=== PATIENT | male | born 1945 | race Caucasian/White ===

== ENCOUNTER 2016-09-14 22:27 | Observation (INO) | payer OTHER, MEDICARE ==
--- NOTE | 2016-09-14 23:02 | EDPHY ---
H & P Stated Complaint: fatigued, memory loss Source: Patient, Family - Personal History Current Tetanus/Diphtheria Vaccine: Unsure - Medical/Surgical History Hx Asthma: Yes Hx Chronic Respiratory Disease: Yes Hx Diabetes: Yes Hx Cardiac Disease: Yes Hx Renal Disease: Yes Hx Cirrhosis: Yes Hx Alcoholism: Yes Hx HIV/AIDS: Yes Hx Splenectomy or Spleen Trauma: Yes Other PMH: PMHx: hypothyroid. PSHx: hernia Time Seen by Provider: 09/14/16 22:44 HPI/ROS: CHIEF COMPLAINT: AMS HISTORY OF PRESENT ILLNESS: This is a 71-year-old presenting to the emergency department reporting he feels like maybe he has had a mini-stroke last night. Patient stated he was feeling fatigue yesterday with a headache went to bed about 1600 slit most of the night, stated she had to wake him up around 8 o 'clock this morning which is out of character for him. Patient's stated he had altered mental status this morning seemed confused. Patient states he feels like he has lost a few years of memory, he remembers going to bed last night but the last thing he can remember was his daughter having a child last . REVIEW OF SYSTEMS: Constitutional: No fever, no chills. Eyes: No discharge. ENT: No sore throat. Cardiovascular: No chest pain, no palpitations. Respiratory: No cough, no shortness of breath. Gastrointestinal: No abdominal pain, no vomiting. Genitourinary: No difficulty urinating Musculoskeletal: No back pain. Skin: No rashes. Neurological: headache, ams (Nabila Stahl) - Physical Exam Exam: General Appearance: Alert, no distress. Eyes: PERRLA. no pallor or injection. ENT, Mouth: Mucous membranes moist. Respiratory: There are no retractions, lungs are clear to auscultation. Cardiovascular: Regular rate and rhythm. Gastrointestinal: Abdomen is soft and nontender, no masses, bowel sounds normal. Neurological: Ambulatory without gait disturbance. No focal deficits, no facial drooping no slurred speech Skin: Warm and dry, no rashes. Musculoskeletal: Neck is supple nontender. Extremities: symmetrical, full range of motion. Psychiatric: Patient is oriented X 3, there is no agitation. Flat affect (Nabila Stahl) Constitutional: Initial Vital Signs Temperature (C) 36.6 C 09/14/16 22:30 Heart Rate 75 09/14/16 22:30 Respiratory Rate 16 09/14/16 22:30 Blood Pressure 142/94 H 09/14/16 22:30 O2 Sat (%) 93 09/14/16 22:30 O2 Delivery Mode Room Air Allergies/Adverse Reactions: No Known Allergies Allergy (Unverified 09/14/16 22:30) Home Medications: Medication Instructions Recorded Levothyroxine [Synthroid 100 mcg 100 mcg PO DAILY06 09/14/16 (*)] Acetaminophen [Tylenol 325mg (*)] 650 mg PO Q4HRS PRN #0 tab 09/15/16 Herbals/Supplements -Info Only 1 ea PO DAILY 09/15/16 Medical Decision Making ED Course/Re-evaluation: Discussed the plan of care: CBC, CMP, troponin, EKG, CT head 2340: Discussed patient's with Dr. Wetzel patient me at admitted for stroke evaluation 2355: Admit to Dr. Overton. Discussed plan with patient and , agreed with plan. Not apparent distress, no neuro changes (Nabila Stahl) Differential Diagnosis: Other differential diagnosis considered not limited to subarachnoid hemorrhage, CVA, and sepsis (Nabila Stahl) - Data Points Laboratory Results: Laboratory Results 09/14/16 22:49 09/14/16 22:49 Medications Given: Discontinued Medications Acetaminophen (Tylenol) 650 mg PO Q4HRS PRN PRN Reason: Pain, Mild/Fever, Can Take PO Stop: 03/14/17 00:26 Last Admin: 09/15/16 07:30 Dose: 650 mg Aspirin Buffered (Aspirin Ec) 81 mg PO DAILY KEEGAN Stop: 03/14/17 08:59 Last Admin: 09/15/16 09:46 Dose: 81 mg Enoxaparin Sodium (Lovenox) 40 mg SC DAILY KEEGAN Stop: 03/14/17 08:59 Last Admin: 09/15/16 09:46 Dose: 40 mg Sodium Chloride (Ns) 1,000 mls @ 0 mls/hr IV ONCE ONE PRN Reason: Wide Open Stop: 09/14/16 23:17 Last Admin: 09/14/16 23:25 Dose: 1,000 mls Sodium Chloride (Ns) 1,000 mls @ 75 mls/hr IV CONT KEEGAN Stop: 03/14/17 00:29 Last Admin: 09/15/16 07:13 Dose: 1,000 mls Departure - Departure Disposition: [facility] Clinical Impression: Altered mental status, unspecified Qualifiers: Altered mental status type: unspecified Qualified Code(s): R41.82 - Altered mental status, unspecified Condition: Good
[2016-09-14 23:09] LABS: % IMMATURE GRANULYOCYTES 0.3 % (0.0-1.1); ABSOLUTE IMMATURE GRANULOCYTES 0.05 10^3/uL (0.00-0.10); ADD DIFF? NO; ADD MORPH? NO; ADD SCAN? NO; ATYPICAL LYMPHOCYTE FLAG 0 (0-99); FRAGMENT RBC FLAG 0 (0-99); HEMATOCRIT 51.3 % (40.0-51.0); HEMOGLOBIN 17.6 g/dL (13.7-17.5); LEFT SHIFT FLG 0 (0-99); LIPEMIA HEMOLYSIS FLAG 90 (0-99); MEAN CELL HEMOGLOBIN 30.4 pg (27.9-34.1); MEAN CELL HEMOGLOBIN CONCENTR. 34.3 g/dL (32.4-36.7); MEAN CELL VOLUME 88.8 fL (81.5-99.8); MEAN PLATELET VOLUME 10.7 fL (8.7-11.7); PLATELET CLUMPS FLAG 20 (0-99); PLATELET COUNT 209 10^3/uL (150-400); RED BLOOD CELL COUNT 5.78 10^6/uL (4.40-6.38); RED CELL DISTRIBUTION WIDTH 14.4 % (11.5-15.2)
[2016-09-14] MEDS ORDERED: NS 1,000 ML IV ONE (23:16)
--- NOTE | 2016-09-14 23:16 | CPEKG ---
Heart Rate: 69 RR Interval: 870 P-R Interval: 164 QRSD Interval: 106 QT Interval: 404 QTC Interval: 433 P [place]: 68 QRS [place]: 110 T Wave [place]ton: 43 EKG Severity - ABNORMAL ECG - EKG Impression: SINUS RHYTHM EKG Impression: VENTRICULAR PREMATURE COMPLEX EKG Impression: PROBABLE RIGHT VENTRICULAR HYPERTROPHY Electronically Signed By: Benjamin Wetzel 15-Sep-2016 06:53:33
[2016-09-14 23:17] LABS: ANION GAP 10 mEq/L (8-16); CARBON DIOXIDE 22 mEq/l (22-31); CHLORIDE 105 mEq/L (97-110); CREATININE 1.1 mg/dL (0.7-1.3); GLOMERULAR FILTRATION RATE > 60; GLUCOSE 108 mg/dL (70-100); POTASSIUM 3.9 mEq/L (3.5-5.2); SODIUM 137 mEq/L (134-144)
[2016-09-14 23:28] LABS: TROPONIN I < 0.012 ng/mL (0-0.034)
[2016-09-15 00:04] LABS: COLOR YELLOW; LEUKOCYTE ESTERASE,URINE NEGATIVE (NEGATIVE); NITRITE,URINE NEGATIVE (NEGATIVE)
[2016-09-15] MEDS ORDERED: ACETAMINOPHEN 325 MG TAB PO PRN (00:27)
[2016-09-15] MEDS ORDERED: ONDANSETRON 4 MG/2 ML VIAL IVP PRN (00:27)
[2016-09-15] MEDS ORDERED: ONDANSETRON DISINTEGRATING 4 MG TAB PO PRN (00:27)
[2016-09-15] MEDS ORDERED: HYDROCODONE/APAP 5/325 TAB PO PRN (00:27)
[2016-09-15] MEDS ORDERED: NS 1,000 ML IV SCH (00:30)
--- NOTE | 2016-09-15 00:38 | PDGENHP ---
History and Physical - Chief Complaint memory loss - History of Present Illness Patient is 71 year old male with hypothyroidism who presents to the ED with his complaining of retrograde memory loss. Patient states he began feeling generally lethargic on 09/13 afternoon, went to sleep in the early evening. He slept throughout the night until his woke him up at 8 am, which is very unusual for him. He continued to feel a general lethargy and also began to experience a mild frontal headache (without photophobia, phonophobia, visual changes), some nasal congestion, sneezing and decreased appetite. He denies any obvious fever, chills, cough, chest pain, nausea, vomiting, diarrhea or urinary complaints. In addition to these symptoms, his also noted that he appeared more confused since waking this morning and also was having difficulty remembering recent events. By this evening, it became clear that the patient could not recall major events in his life from the past two years. 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 He is aware of the past 24 hours, but cannot recall major events in his recent past. He/his deny any recent travel or sick contacts. He also has not had any major falls or head trauma recently. He does regularly smoke marijuana and this has not changed in frequency or quantity recently. Denies any other drug use, denies any recent changes to his Synthroid dose. On arrival to the ED, patient was afebrile and hemodynamically stable. Labs revealed a leukocytosis, but normal BMP, negative troponin and normal UA. CT head was unremarkable for any acute changes. EKG was also negative for any ischemic changes. He was given 1L NS hydration and admitted to the hospitalist service for further management. History Information - Allergies/Home Medication List Allergies/Adverse Reactions: No Known Allergies Allergy (Unverified 09/14/16 22:30) Home Medications: Levothyroxine 09/14/16 [Last Taken Unknown] I have personally reviewed and updated: family history, medical history, social history, surgical history - Past Medical History Additional medical history: hypothyroidism - Surgical History Additional surgical history: hernia repair - Family History Additional family history: Father: CVA - Social History Smoking Status: Former smoker (quit > 30 years ago, smoker x 10 years) Alcohol Use: Rarely Drug Use: Marijuana (daily) Additional social history: 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 Review of Systems ROS: 10pt was reviewed & negative except for what was stated in HPI & below Physical Exam Temp Pulse Resp BP Pulse Ox 36.6 C 75 16 142/94 H 93 09/14/16 22:30 09/14/16 22:30 09/14/16 22:30 09/14/16 22:30 09/14/16 22:30 Constitutional: no apparent distress, appears nourished, not in pain Eyes: PERRL, anicteric sclera, EOMI Ears, Nose, Mouth, Throat: moist mucous membranes, hearing normal, ears appear normal, no oral mucosal ulcers Cardiovascular: regular rate and rhythym, no murmur, rub, or gallop, No JVD, No edema Peripheral Pulses: 2+: dorsalis-pedis (R), dorsalis-pedis (L) Respiratory: no respiratory distress, no rales or rhonchi, clear to auscultation Gastrointestinal: normoactive bowel sounds, soft, non-tender abdomen, no palpable masses Genitourinary: no bladder fullness, no bladder tenderness Skin: warm, normal color, no rashes or abrasions, no fluctuance, no induration, No mottled Musculoskeletal: full muscle strength, no muscle tenderness, normal joint ROM, no joint effusions Neurologic: AAOx3, sensation intact bilaterally, CN II-XII Intact, other ( finger to nose intact; strength 5/5 in all extremities; cannot recall last 2 years of his life), No weakness, No numbness, No pronator drift, No asterixes, No facial droop Psychiatric: interacting appropriately, not anxious, not encephalopathic, thought process linear Lab Data & Imaging Review 09/14/16 22:49 09/14/16 22:49 WBC 14.34 10^3/uL (3.80-9.50) H 09/14/16 22:49 RBC 5.78 10^6/uL (4.40-6.38) 09/14/16 22:49 Hgb 17.6 g/dL (13.7-17.5) H 09/14/16 22:49 Hct 51.3 % (40.0-51.0) H 09/14/16 22:49 MCV 88.8 fL (81.5-99.8) 09/14/16 22:49 MCH 30.4 pg (27.9-34.1) 09/14/16 22:49 MCHC 34.3 g/dL (32.4-36.7) 09/14/16 22:49 RDW 14.4 % (11.5-15.2) 09/14/16 22:49 Plt Count 209 10^3/uL (150-400) 09/14/16 22:49 MPV 10.7 fL (8.7-11.7) 09/14/16 22:49 Neut % (Auto) 66.9 % (39.3-74.2) 09/14/16 22:49 Lymph % (Auto) 22.5 % (15.0-45.0) 09/14/16 22:49 [place] % (Auto) 8.9 % (4.5-13.0) 09/14/16 22:49 Eos % (Auto) 0.8 % (0.6-7.6) 09/14/16 22:49 Baso % (Auto) 0.6 % (0.3-1.7) 09/14/16 22:49 Nucleat RBC Rel Count 0.0 % (0.0-0.2) 09/14/16 22:49 Absolute Neuts (auto) 9.59 10^3/uL (1.70-6.50) H 09/14/16 22:49 Absolute Lymphs (auto) 3.22 10^3/uL (1.00-3.00) H 09/14/16 22:49 Absolute Monos (auto) 1.28 10^3/uL (0.30-0.80) H 09/14/16 22:49 Absolute Eos (auto) 0.12 10^3/uL (0.03-0.40) 09/14/16 22:49 Absolute Basos (auto) 0.08 10^3/uL (0.02-0.10) 09/14/16 22:49 Absolute Nucleated RBC 0.00 10^3/uL (0-0.01) 09/14/16 22:49 Immature Gran % 0.3 % (0.0-1.1) 09/14/16 22:49 Immature Gran # 0.05 10^3/uL (0.00-0.10) 09/14/16 22:49 Sodium 137 mEq/L (134-144) 09/14/16 22:49 Potassium 3.9 mEq/L (3.5-5.2) 09/14/16 22:49 Chloride 105 mEq/L (97-110) 09/14/16 22:49 Carbon Dioxide 22 mEq/l (22-31) 09/14/16 22:49 Anion Gap 10 mEq/L (8-16) 09/14/16 22:49 BUN 20 mg/dL (7-23) 09/14/16 22:49 Creatinine 1.1 mg/dL (0.7-1.3) 09/14/16 22:49 Estimated GFR > 60 09/14/16 22:49 Glucose 108 mg/dL (70-100) H 09/14/16 22:49 Calcium 10.0 mg/dL (8.5-10.4) 09/14/16 22:49 Troponin I < 0.012 ng/mL (0-0.034) 09/14/16 22:49 Urine Color YELLOW 09/14/16 23:53 Urine Appearance CLEAR 09/14/16 23:53 Urine pH 6.0 (5.0-7.5) 09/14/16 23:53 Ur Specific [place] 1.017 (1.002-1.030) 09/14/16 23:53 Urine Protein NEGATIVE (NEGATIVE) 09/14/16 23:53 Urine Ketones NEGATIVE (NEGATIVE) 09/14/16 23:53 Urine Blood NEGATIVE (NEGATIVE) 09/14/16 23:53 Urine Nitrate NEGATIVE (NEGATIVE) 09/14/16 23:53 Urine Bilirubin NEGATIVE (NEGATIVE) 09/14/16 23:53 Urine Urobilinogen NEGATIVE EU (0.2-1.0) 09/14/16 23:53 Ur Leukocyte Esterase NEGATIVE (NEGATIVE) 09/14/16 23:53 Urine Glucose NEGATIVE (NEGATIVE) 09/14/16 23:53 Visualized and Interpreted imaging results: Yes Interpretation: CT head: no acute intracranial hemorrhage, edema, infarct noted Visualized and Interpreted EKG results: Yes EKG Interpretation: Positive for: normal sinsus rhythm (no obvious st/t wave changes) Assessment & Plan Assessment: Patient is a 71 year old male with well controlled hypothyroidism who presents to the ED with 1 day of generalized fatigue, upper respiratory symptoms and retrograde amnesia. Plan: # retrograde amnesia According to patient's , this has been present since this AM, not with any other focal neurologic deficits. CT head is negative for acute changes. Suspect a metabolic etiology given coinciding URI type symptoms vs related to an acute neurologic event vs related to marijuana use. Patient presents outside of tpa window and NIH stroke scale is 0. - check lipid panel, tsh, TTE and troponins - neurology consult - carotid US, consider MRI brain - rule out infection - check drug screen # leukocytosis Patient describes 1 day of sneezing, nasal congestion and mild frontal headache , appears consistent with an early URI. He has leukocytosis on presentation, but does not meet SIRS/sepsis criteria. UA negative. Will check flu swab and cxr and continue to trend. # hypothyroidism Check TSH and continue home synthroid # dispo: admit to observation # gen: Regular diet DVT ppx: low risk Full code
[2016-09-15 05:02] LABS: % IMMATURE GRANULYOCYTES 0.3 % (0.0-1.1); ABSOLUTE IMMATURE GRANULOCYTES 0.03 10^3/uL (0.00-0.10); ADD DIFF? NO; ADD MORPH? NO; ADD SCAN? NO; ATYPICAL LYMPHOCYTE FLAG 0 (0-99); FRAGMENT RBC FLAG 0 (0-99); HEMOGLOBIN 16.9 g/dL (13.7-17.5); LEFT SHIFT FLG 0 (0-99); LIPEMIA HEMOLYSIS FLAG 90 (0-99); MEAN CELL HEMOGLOBIN 30.7 pg (27.9-34.1); MEAN CELL HEMOGLOBIN CONCENTR. 34.5 g/dL (32.4-36.7); MEAN CELL VOLUME 88.9 fL (81.5-99.8); MEAN PLATELET VOLUME 10.7 fL (8.7-11.7); PLATELET CLUMPS FLAG 0 (0-99); PLATELET COUNT 171 10^3/uL (150-400); RED BLOOD CELL COUNT 5.51 10^6/uL (4.40-6.38); RED CELL DISTRIBUTION WIDTH 14.2 % (11.5-15.2)
--- NOTE | 2016-09-15 05:08 | CPEKG ---
Heart Rate: 74 RR Interval: 811 P-R Interval: 164 QRSD Interval: 96 QT Interval: 388 QTC Interval: 431 P [place]: 81 QRS [place]: 105 T Wave [place]: 37 EKG Severity - OTHERWISE NORMAL ECG - EKG Impression: SINUS RHYTHM EKG Impression: RIGHT AXIS DEVIATION Electronically Signed By: Benjamin Wetzel 15-Sep-2016 06:53:33
[2016-09-15 05:13] LABS: ANION GAP 8 mEq/L (8-16); CALCIUM 9.1 mg/dL (8.5-10.4); CARBON DIOXIDE 22 mEq/l (22-31); CHLORIDE 109 mEq/L (97-110); CHOLESTEROL 152 mg/dL (140-220); CHOLESTEROL/HDL RATIO 5.24 RATIO (1.00-4.97); GLOMERULAR FILTRATION RATE > 60; GLUCOSE 99 mg/dL (70-100); HIGH DENSITY LIPOPROTEIN 29 mg/dL (40-65); LDL/HDL RATIO 3.38 RATIO (1.00-3.64); LOW DENSITY LIPOPROTEIN 98 mg/dL (80-100); NON-HIGH DENSITY LIPOPROTEIN 123 mg/dL (90-129); POTASSIUM 4.1 mEq/L (3.5-5.2); SODIUM 139 mEq/L (134-144); TRIGLYCERIDE 128 mg/dL (40-150); VERY LOW DENSITY LIPOPROTEINS 25 mg/dL (8-25)
[2016-09-15 05:19] LABS: INR 1.01 (0.83-1.16); PROTIME(PATIENT) 13.2 SEC (12.0-15.0)
[2016-09-15 05:20] LABS: APTT 28.5 SEC (23.0-38.0)
[2016-09-15 05:24] LABS: TROPONIN I 0.013 ng/mL (0-0.034)
[2016-09-15 06:41] LABS: CK-MB INTERPRETATION NEGATIVE (NEGATIVE)
[2016-09-15 06:48] LABS: CREATINE KINASE-MB FRACTION 3.41 ng/mL (0-3.19)
[2016-09-15 07:54] VITALS: PULSE 74; RESP 16
[2016-09-15] MEDS ORDERED: ENOXAPARIN 40 MG/0.4 ML SYR SC SCH (09:00)
[2016-09-15] MEDS ORDERED: ASPIRIN EC 81 MG TAB PO SCH (09:00)
[2016-09-15 11:54] VITALS: BP 132/82; TEMP 97.9; O2SAT 94
--- NOTE | 2016-09-15 12:42 | HOSPPROG ---
Hospitalist Progress Note Assessment/Plan: Patient is a 71 year old male with hypothyroidism who presents to the ED with 1 day of generalized fatigue, upper respiratory symptoms and retrograde amnesia. # Global transient amnesia CT of head negative MRI shows ? right inferior frontal hemorrhage (likely artifact) patient to f/u w Dr London echo pending carotid Doppler shows no flow limiting stenosis #cannibas use recommending not using this until amnesia resolves # leukocytosis negative for flu afebrile, on room air ua negative per had a fever this past , but none further # hypothyroidism TSH is stable Synthroid # dispo: dc home Subjective: Vineet has no complaints. Objective: Vital Signs Temp Pulse Resp BP Pulse Ox 36.6 C 74 16 132/82 H 94 09/15/16 11:52 09/15/16 11:52 09/15/16 11:52 09/15/16 11:52 09/15/16 11:52 Laboratory Results 09/15/16 04:33 09/15/16 04:33 09/14/16 09/15/16 09/16/16 05:59 05:59 05:59 Intake Total 1400 Output Total 800 Balance 600 PT 13.2 SEC (12.0-15.0) 09/15/16 04:33 INR 1.01 (0.83-1.16) 09/15/16 04:33 - Physical Exam Constitutional: no apparent distress, appears nourished, not in pain Eyes: PERRL Ears, Nose, Mouth, Throat: hearing normal Cardiovascular: regular rate and rhythym Respiratory: no respiratory distress Gastrointestinal: normoactive bowel sounds Skin: warm Musculoskeletal: full muscle strength, no muscle tenderness Neurologic: AAOx3, CN II-XII Intact, No numbness, No pronator drift, No facial droop Psychiatric: interacting appropriately, not anxious, poor memory ICD10 Worksheet Patient Problems: Problems Problem Status Onset Altered mental status, unspecified Acute
--- NOTE | 2016-09-15 14:59 | GCON ---
[f rep st] CONSULTATION NEUROLOGY CONSULTATION REFERRING PHYSICIAN: Quita Overton MD CHIEF COMPLAINT: Amnesia. TOTAL TIME: seventy total minutes floor time today; 50% in direct counseling with the patient and his regarding differential diagnosis and plan of care for the patient's amnesia along with reviewing hospital studies. 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 The only prescription medicine he takes is thyroid replacement. He has no significant past medical history outside of this and does smoke marijuana twice daily for many years. He obtains his marijuana from standard dispensaries. There has been no change in his quantity or pattern of smoking marijuana. His states that his memory "is great" at baseline but he has never had any profound amnestic spells. There has been no recent head trauma that he knows of , accidents, etc. Yesterday morning he woke up with a slight headache and realized that he could not remember the last 2-5 years of life events, including the of a grandchild who he spent 1 month with in February, and other similar types of important information he should remember. Because of this, he was brought to the emergency department. In addition, he did have a fever they think on Saturday or but could not get out to the drug store to buy a thermometer due to the snow. Therefore there it was a subjective fever but in any case, he did feel a little bit feverish and had a headache at that time as well on Saturday or . The amnesia started yesterday morning on Saturday. No focal neurologic symptoms. Carotid Doppler done while in the hospital shows no flow-limiting stenosis. Echocardiogram is pending. Head CT and brain MRI are essentially unremarkable. He has no acute infarct or mass lesions. The MRI does suggest raise a possible tiny right inferior frontal hemorrhage but also raises the point this could be partial volume averaging from the orbital ridge. It was compared to the head CT which again, does not clarify the imaging finding. It could be certainly an artifact. REVIEW OF SYSTEMS: A 10-point review of systems was done and only pertinent to the HPI. PAST MEDICAL HISTORY: Hypothyroidism. ALLERGIES: No known drug allergies. HOME MEDICATIONS: Levothyroxine. FAMILY HISTORY: Father had a stroke. PHYSICAL EXAMINATION: VITAL SIGNS: Temperature 36.6, pulse 75, respirations 16 , blood pressure 119/69. GENERAL: No acute distress. He is very pleasant. HIGHER MENTAL FUNCTION: He is awake and alert. He had no aphasia. On the Sourav Cognitive Assessment he scored 22/30 earlier this morning with 0/5 word recall after delay. CRANIAL NERVE EXAM: Normal 2 through 7 and 12. MOTOR : He has normal strength and tone throughout. No focal weakness. SENSORY: Normal light touch in all 4 extremities. Coordination and gait were normal. The patient was quite agile. IMPRESSION/PLAN: 1. Amnesia. The patient's amnestic spell is not entirely clear. This could be an atypical presentation of transient global amnesia (TGA) with more profound retrieval abnormalities. Other contributors include his twice daily cannabis consumption which could exacerbate any other independent causes of amnesia (such as TGA). Discussed at length. Focal seizure is a possibility but less likely with the volume of memory that is lost at this point. In light of his mild febrile symptoms at home, a mild viral meningitis/encephalitis is on differential diagnosis. He has no meningismus, fever, rash, or toxic signs or symptoms now. I do not recommend we do a lumbar puncture at this point, unless he develops any other symptoms. There is no evidence of a [employer] infection currently on physical or laboratory exam. He did have a small white count when he came in which is trending down. He has not had a fever here. Lastly, the imaging finding certainly may be an artifact as he has not had any head trauma. Even if he did have an occult head trauma with concussion which he cannot recall, management would be observation and holding any antithrombotic. He does not take any antithrombotics. We will repeat neuroimaging as an outpatient. I recommend he refrain from driving and be on seizure precautions for the time being until I see him as an outpatient which will be this September 19. At that point, we can order an EEG and repeat imaging, etc. He should refrain from any antithrombotics for the time being. I gave him and his family precautions on when to return to the emergency department such as fever, rash, neck stiffness or stroke symptoms. He will likely discharge later today. I have no further recommendations now. I will look forward to seeing this pleasant gentleman and his family as an outpatient. Thank you for this consultation. /[id number]/MODL MTDD
--- NOTE | 2016-09-15 15:40 | GDS ---
[f rep st] DISCHARGE SUMMARY DISCHARGE DIAGNOSES: 1. Global transient amnesia. 2. Cannabis use. 3. Leukocytosis. 4. Hypothyroidism. CONSULTATIONS: Dr. Leobardo London with neurology services. HISTORY OF PRESENT ILLNESS: Briefly, the patient is a 71-year-old male, who presented in the emergency room with his , complaining of retrograde memory loss. He had been feeling lethargic in the afternoon and went to sleep in the early evening, his woke him up in the morning, which is very unusual with him, he continued to feel lethargic, without photophobia, phonophobia, or visual changes. He had some nasal congestion, according to the . 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 He helped his colleague with a court case approximately a week ago, and cannot recall this. He is aware of the past 24 hours, but cannot recall any major events in the recent past. A CT of the head was performed and was unremarkable for any acute changes. Subsequently, a brain MRI was performed that showed a possible tiny inferior frontal hemorrhage, in reviewing this with the neurologist, they felt that this was artifact. I reviewed his echocardiogram with the wood room supervisor, nothing acute is showing. A carotid Doppler showed no flow limiting stenosis. He continues to have transient amnesia, it is unclear if maybe he had viral meningitis last week, because he had cold-like symptoms with fever. At this time, it is unclear the etiology of his global transient amnesia. He will further follow up with Dr. London this next Saturday and get an EEG. HOSPITAL COURSE: 1. Global transient amnesia. He will further follow up with Dr. London. I have explained to the patient and his , if he has any stroke-like symptoms, fever , chills, chest pain, shortness of breath to return to the ER. 2. Cannabis use. Recommending that he stop using this until his amnesia resolves. 3. Leukocytosis. He is negative for flu, he is afebrile, he is on room air. His UA is negative. He is feeling well today, eating and drinking. 4. Hypothyroidism, on Synthroid. TSH is stable. PENDING LABS AND TESTS: None. CONDITION AT DISCHARGE: Stable. Blood pressure is 132/82, respiratory rate 16, pulse 74, temperature 36.6 Celsius, O2 sats are 94%. MEDICATIONS AT DISCHARGE: Please see the EMR. DISCHARGE INSTRUCTIONS: 1. Follow up with Dr. London this Saturday. 2. No driving until he gets clearance from Dr. London. 3. To stop cannabis use. 4. If he develops fever, rash, neck pain, shortness of breath, chest pain, or chills to return to the ER. /[id number]/MODL MTDD
[2016-09-16] MEDS ORDERED: LEVOTHYROXINE 100 MCG TAB PO SCH (06:00)
[2016-09-16] MEDS ORDERED: Herbals/Supplements -Info Only PO SCH (09:00)
--- NOTE | 2016-09-16 10:42 | ECHO ---
[id number] + + [address] : : [place] [address] : : [phone] + + Adult Echocardiographic Report + -----+ :Name: Hilaria GONSALEZjessica Date: 09/15/2016 12:01 PM BP: 132/82 mmHg : : Hospital Admission Number: [id number] Location : 361: :: 1945 Gender: Male Height: 72 in : :Age: 71 yrs Race: WH Weight: 215 lb : :Reason For Study: source of emboli : : BSA: 2.2 meters2 : :History: possible CVA : + -----+ MMode/2D Measurements \T\ Calculations IVSd: 0.99 cm RVDd: 2.8 cm FS: 38.9 % Ao root diam: LVPWd: 1.1 cm LVIDd: 4.4 cm EDV(Teich): 3.0 cm LVIDs: 2.7 cm 88.0 ml ESV(Teich): 26.8 ml EF(Teich): 69.6 % LVLd ap4: 8.8 cm SV(MOD-sp4): EDV(MOD-sp4): 89.0 ml 119.0 ml LVLs ap4: 7.1 cm ESV(MOD-sp4): 30.0 ml EF(MOD-sp4): 74.8 % Normal Measurement Values: + + :LVIDd (3.5-5.7cm) IVSd (0.6-1.1cm) LVPWd (0.6-1.1cm) Aortic Root (2.0-3.7cm)Left Atrium (1.5-4.0cm): :LV Vol(d) (76-115ml) LV Vol(s) (29-48ml) Ejec Fraction (50-65%)PV Skyler (0.6- 1.2m/s) TV Skyler (0.4-1.0m/s) : :MV E Skyler (0.8-1.0m/s)MV A Skyler (0.3-1.0m/s)LVOT Skyler (0.7-1.2m/s) Asc Ao Skyler ( 0.9-1.8m/s) : + + Doppler Measurements \T\ Calculations MV E max skyler: Ao V2 max: LV V1 max: PA V2 max: 64.2 cm/sec 120.2 cm/sec 125.6 cm/sec 91.7 cm/sec MV A max skyler: Ao max P.8 mmHgLV V1 max PG: PA max P.1 cm/sec 6.3 mmHg 3.4 mmHg MV E/A: 0.89 MV dec time: 0.31 sec Left Ventricle The left ventricle is normal in size and function. There is borderline concentric left ventricular hypertrophy. Ejection Fraction = 70-75%. Regional wall motion abnormalities cannot be excluded due to limited visualization. Right Ventricle The right ventricle is normal in size and function. Atria The left atrial size is normal. Right atrial size is normal. Mitral Valve The mitral valve is normal in structure and function. There is no mitral valve stenosis. There is trace mitral regurgitation. Tricuspid Valve The tricuspid valve is normal in structure and function. There is no tricuspid stenosis. No tricuspid regurgitation. Aortic Valve The aortic valve is not well visualized. There is no aortic stenosis. There is no aortic insufficiency. Pulmonic Valve The pulmonic valve is not well visualized. Great Vessels The aortic root is normal size. Pericardium/Pleural There is no pericardial effusion. Conclusion The study was technically difficult. There is no obvious source of embolus identified. If one is highly clinically suspected, then transesophageal echocardiography should be considered. The left ventricle is normal in size and function. There is borderline concentric left ventricular hypertrophy. Ejection Fraction = 70-75%. There is trace mitral regurgitation. The aortic valve is not well visualized. Final Reading Physician: Gareth Espinoza MD electronically signed on 09/16/2016 10:41 AM Ordering Physician: Quita Overton Performed By: Anna Jimenez
== END 2016-09-15 15:49 | disposition home or self-care (01) ==
LOC: INTOOBSV 23:54 → F3N 09-15 01:20
PROVIDERS: ADMIT Internal Medicine; ATTEND Hospitalist
DX: G45.4 Transient global amnesia (principal); F12.20 Cannabis dependence, uncomplicated; D72.829 Elevated white blood cell count, unspecified; R41.841 Cognitive communication deficit; E03.9 Hypothyroidism, unspecified; R93.0 Abnormal findings on diagnostic imaging of skull and head, not elsewhere classified; Z87.891 Personal history of nicotine dependence
CPT/HCPCS: 70450; 70551; 92523; 93005; 93306; 93880; 97161; 97165; 99285; G0378; G8978; G8979; G8980; G8987; G8988; G8989; G9168; G9169; J1650

== ENCOUNTER → 2016-09-25 | Outpatient (CLI) | payer OTHER, MEDICARE | LOC: FIMAGING 10:40 | PROVIDERS: ATTEND Psychiatry & Neurology Neurology | DX: G45.4 Transient global amnesia (principal) ==

== ENCOUNTER → 2016-10-02 | Outpatient (CLI) | payer OTHER, MEDICARE ==
--- NOTE | 2016-10-02 15:52 | CPEEG ---
[f rep st] ELECTROENCEPHALOGRAM 4-HOUR VIDEO EEG DATE OF STUDY: 10/02/2016 INTERPRETATION: This 4-hour video EEG recording is normal. There were no potentially epileptogenic abnormalities present during the awake or sleep recordings. During the video EEG monitoring session, the patient did not have any clinical events. REPORT: This 4-hour video EEG contains 10 Hz alpha to the posterior head regions. There was no abnormal activation at rest, during photic stimulation, or hyperventilation. The patient became drowsy and fell into sustained sleep during the study. There was no abnormal activation during drowsiness, sleep, or during times of arousal. During the video EEG monitoring session, the patient did not have any clinical events. /[id number]/MODL MTDD
== END ==
LOC: FCPNEURO 08:54
PROVIDERS: ATTEND Psychiatry & Neurology Neurology
DX: G45.4 Transient global amnesia (principal)

== ENCOUNTER → 2016-12-26 | Outpatient (CLI) | payer OTHER, MEDICARE | LOC: FIMAGING 07:59 | PROVIDERS: ATTEND Family Medicine | DX: Z13.6 Encounter for screening for cardiovascular disorders (principal); R91.8 Other nonspecific abnormal finding of lung field; E78.5 Hyperlipidemia, unspecified ==

== ENCOUNTER → 2017-01-04 | Outpatient (CLI) | payer OTHER, MEDICARE ==
[~2017-01-04] MED LIST: IOPAMIDOL (ISOVUE 370) 100 ML BTL IV ONE
== END ==
LOC: FIMAGING 14:43
PROVIDERS: ATTEND Family Medicine
DX: I71.4 Abdominal aortic aneurysm, without rupture (principal); N28.1 Cyst of kidney, acquired; N40.0 Benign prostatic hyperplasia without lower urinary tract symptoms
CPT/HCPCS: 74174; Q9967

== ENCOUNTER → 2018-02-12 | Outpatient (CLI) | payer OTHER, MEDICARE | LOC: FIMAGING 12:43 | PROVIDERS: ATTEND Internal Medicine Cardiovascular Disease | DX: I71.4 Abdominal aortic aneurysm, without rupture (principal); I77.89 Other specified disorders of arteries and arterioles | CPT/HCPCS: 71275; 74174; Q9967; 82565-PO ==

== ENCOUNTER → 2018-10-15 | Outpatient (CLI) | payer OTHER, MEDICARE | LOC: FIMAGING 08:36 ==